=== PATIENT | female | born 1980 | race Caucasian/White ===

== ENCOUNTER 2016-10-25 11:14 | Emergency (ER) | payer BC ==
[2016-10-25 12:01] VITALS: BP 133/91
--- NOTE | 2016-10-25 13:09 | UC ---
Laceration HPI - HPI Summary HPI Summary: complaint of laceration on her right pointer finger was taking out the garbage this morning and cut her finger on glass bleed a lot and concerned about having laceration washed off can bend her finger without difficulty hasn't taken any medication for pain - History Of Current Complaint Chief Complaint: UCLaceration Stated Complaint: RIGHT INDEX FINGER LACERATION Time Seen by Provider: 10/25/16 13:02 Hx Obtained From: Patient Laceration Location: Finger - Allergies/Home Medications Allergies/Adverse Reactions: Allergies Allergy/AdvReac Type Severity Reaction Status Date / Time Bees Allergy Severe hives, Uncoded 02/05/16 19:34 severe rash, swells all over PMH/Surg Hx/FS Hx/Imm Hx Previously Healthy: Yes Endocrine History Of: Denies: Diabetes Cardiovascular History Of: Reports: Cardiac Disorders - rapid heart rate- medicine induced, Hypertension Denies: Pacemaker/ICD Respiratory History Of: Reports: Asthma, Bronchitis - 2011- NONE SINCE GI/ History Of: Reports: Kidney Stones - Check position- no current symptoms Comment Only: Renal Disease - New stone left kidney on US done in Dr Palacios's office Neurological History Of: Reports: Migraine - HX OF, NONE SINCE GLUTEN FREE DIET - Surgical History Surgical History: Yes Surgery Procedure, Year, and Place: 09/19/2013 [place] [facility] [place] [facility] [place] - Family History Known Family History: Positive: Cardiac Disease, Hypertension, Diabetes - Social History Alcohol Use: None Substance Use Type: None Smoking Status (MU): Former Smoker Amount Used/How Often: 1 PACK A WEEK Have You Smoked in the Last Year: No When Did the Patient Quit Smoking/Using Tobacco: January 2004 - Immunization History Most Recent Influenza Vaccination: has not had Most Recent Tetanus Shot: 2006 Review of Systems Constitutional: Negative Skin: Other - laceration Eyes: Negative ENT: Negative Respiratory: Negative Cardiovascular: Negative Gastrointestinal: Negative Genitourinary: Negative Motor: Negative Neurovascular: Negative Musculoskeletal: Negative Neurological: Negative Psychological: Negative All Other Systems Reviewed And Are Negative: Yes Physical Exam Triage Information Reviewed: Yes Appearance: Well-Nourished Vital Signs: Initial Vital Signs Temp 98.3 F 10/25/16 11:53 Pulse 88 10/25/16 11:53 Resp 16 10/25/16 11:53 BP 133/91 10/25/16 11:53 Pulse Ox 100 10/25/16 11:53 Vital Signs Reviewed: Yes Eyes: Positive: Conjunctiva Clear ENT: Positive: Pharynx normal. Negative: Nasal congestion Respiratory: Positive: Lungs clear, Normal breath sounds, No respiratory distress Cardiovascular: Positive: RRR, No Murmur, Pulses Normal Abdomen Description: Positive: Nontender, Soft Bowel Sounds: Positive: Present Musculoskeletal: Positive: No Edema Neurological: Positive: Alert Psychological Exam: Normal Skin: Positive: Other - left pointer finger with 4mm laceration between DIP/PIP Laceration Repair - Laceration Repair 1 Description: Linear Laceration Size After Repair: Length (cm) - 4mm, Width (mm) - 1mm, Depth (mm) - 2mm Modified For Repair: No Cleansing Completed Via Routine Prep: Yes Irrigation With Pressure Irrigation Device: Yes Closure Material: Skin Adhesive, SteriStrips Laceration Course/Dx - Differential Dx - Laceration/Wound Differental Diagnoses: Laceration Provider Diagnoses: simple laceration -left pointer finger Discharge - Discharge Plan Condition: Stable Disposition: HOME Patient Education Materials: Laceration (ED), Skin Adhesive Care (ED) Additional Instructions: keep you finger clean and dry wear the finger splint for 24 hours keep the steristrips on your finger until they fall off Take acetaminophen or ibuprofen for fever or pain Please review your discharge instructions. If your symptoms do not improve please call your primary care provider or return to urgent care
== END 2016-10-25 13:26 | disposition home or self-care (01) ==
LOC: UCCORT 11:14
DX: S61.210A Laceration without foreign body of right index finger without damage to nail, initial encounter (principal); W25.XXXA Contact with sharp glass, initial encounter; Y93.89 Activity, other specified; Y92.9 Unspecified place or not applicable; Z90.49 Acquired absence of other specified parts of digestive tract; Z87.891 Personal history of nicotine dependence
CPT/HCPCS: 12001; 99211; G0463

== ENCOUNTER 2017-06-03 06:27 | Day surgery (SDC) | payer BC ==
[~2017-06-03 06:27] MED LIST: Buffered Lidocaine 0.9% SYRIN* 5 ML/SYR SYRINGE INTRADERM ONE
[2017-06-03] MEDS ORDERED: ceFAZolin 2 GM PREMIX (*) 2 GM/50 ML BAG IVPB ONE (06:39)
[2017-06-03] MEDS ORDERED: Bupivacaine 0.25% SDV* 30 ML ONE (07:25)
[2017-06-03] MEDS ORDERED: Midazolam* 1 MG/ML 2 ML VIAL (2 MG) ONE (07:40)
[2017-06-03] MEDS ORDERED: fentaNYL* 50 MCG/ML 2 ML VIAL (100 MCG VIAL) ONE ×2 (07:40→08:23)
[2017-06-03] MEDS ORDERED: Famotidine IV* 10 MG/ML 2 ML (20 mg) ONE (07:47)
[2017-06-03] MEDS ORDERED: Ketorolac INJ* 30 MG/ML 1 ML VIAL ONE (08:34)
[2017-06-03] MEDS ORDERED: Propofol* 10 MG/ML 20 ML BTL IV PUSH ONE (08:34)
[2017-06-03] MEDS ORDERED: Dexamethasone IV* 4 MG/ML 1 ML (4 MG) ONE (08:34)
[2017-06-03] MEDS ORDERED: Ondansetron INJ* 2 MG/ML VIAL ONE (08:34)
[2017-06-03] MEDS ORDERED: Lidocaine 2% PF * 5 ML VIAL ONE (08:34)
[2017-06-03] MEDS ORDERED: Ondansetron INJ* 2 MG/ML VIAL IV PRN (08:51)
[2017-06-03] MEDS ORDERED: HYDROmorphone INJ* 1 MG/ML CARPUJECT SYRINGE IV PRN (08:51)
[2017-06-03] MEDS ORDERED: Acetaminophen TAB* 325 MG PO PRN (08:51)
[2017-06-03] MEDS ORDERED: Levalbuterol 0.63MG/3ML NEB* UNIT OF USE INH PRN (08:51)
[2017-06-03] MEDS ORDERED: fentaNYL* 50 MCG/ML 2 ML VIAL (100 MCG VIAL) IV PRN (08:51)
[2017-06-03] MEDS ORDERED: DiMENhydriNATE IV* 50 MG/ML VIAL IV PUSH PRN (08:51)
[2017-06-03] MEDS ORDERED: HYDROcodone/ACETAMIN 5-325 MG* 1 TAB PO PRN ×2 (08:51)
[2017-06-03] MEDS ORDERED: PROCHLORPERAZINE INJ 5 MG/ML 2 ML VIAL IV PRN (08:51)
[2017-06-03] MEDS ORDERED: DiMENhydriNATE IV* 50 MG/ML VIAL ONE (09:54)
[2017-06-03] MEDS ORDERED: HYDROcodone/ACETAMIN 5-325 MG* 1 TAB ONE (10:10)
[2017-06-03 10:19] VITALS: BP 110/73
--- NOTE | 2017-06-03 12:07 | OP ---
DATE OF OPERATION: 06/03/17 - [facility] DATE OF : 80 SURGEON: Cristobal Fontenot MD INDUSTRIAL ECOLOGIST: SILVIA Crain. An insurance sales assistant was needed for the entirety of the case to aid in holding the instruments and positioning the arm in retraction. ANESTHESIOLOGIST: Bertha Hall MD ANESTHESIA: General. PRE-OP DIAGNOSIS: Right dorsal intraarticular wrist nodule. POST-OP DIAGNOSES: 1. Right dorsal intraarticular wrist nodule. 2. Right dorsal wrist ganglion and synovitis. OPERATIVE PROCEDURE: 1. Right wrist diagnostic arthroscopy. 2. Right wrist arthroscopic partial synovectomy of the proximal and midcarpal rows. 3. Right dorsal wrist mass excision. INDICATIONS: Angeles has had persistent right dorsal radial wrist pain that is causing her pain when she flexes and extends the wrist. She has had intermittent swelling and bruising on the dorsum of the wrist. MRI showed an intraarticular nodule consistent with possible PVNS. I talked to her about risks and benefits. She wanted to have it excised as she really was not getting better despite multiple months of waiting and nonoperative treatment. I told her that I would take a look with the scope too prior to excising this and see if we can get some good pictures. ESTIMATED BLOOD LOSS: 5 mL. COMPLICATIONS: None. FINDINGS: It did look like there was a ganglion cyst coming off the scapholunate dorsal ligament. There was significant dorsal synovitis in the wrist. DESCRIPTION OF PROCEDURE: Angeles was seen in the preoperative holding area. The correct side, site, and procedure were identified. We came back to the operating room where the arm was prepped and draped in the usual fashion. A time-out was performed. I began by placing the arm in the Acumed traction tower. The arm was then exsanguinated and tourniquet inflated to 250 mmHg. I developed a 3/4 portal using an 11-blade and then a mosquito. The camera was placed. The wrist arthroscopy was begun, took pictures of the radial side of ligaments and the TFCC. I swung up dorsally behind the scapholunate ligament and there was lot of synovitis, but no tessa mass was appreciated. I then broadened the shaver and excised all of the very inflamed and dorsal synovitis. I had to establish a 6 R portal in standard fashion to introduce the shaver. I went up and established the radial and ulnar midcarpal portals again using the 11-blade and mosquito. There was no diastasis of either the scapholunate or lunotriquetral joints. It was a type 2 lunate. Again, there was abundant dorsal synovitis. I brought in a small shaver and excised this. I then removed all the arthroscopic equipments, passed it off, and we begun the open portion of the procedure. I begun by making a longitudinal incision over the dorsum of the wrist in line incorporating the 3/4 and radial midcarpal portals, brought that more centrally , proximally, and distally. Dissection was carried down longitudinally. Full- thickness flaps were raised right off the paratenon and extensor retinaculum. The nodule could be palpated right between the second and fourth dorsal compartment tendons, just distal to the third dorsal compartment tendon. I went ahead and lifted off the capsule in this area. There was ganglion fluid that came out right off the dorsal scapholunate ligament. This was all excised , sent off as a specimen. I cauterized the area. Once everything was cleaned up and excised, I went ahead and irrigated out the wound. The skin and subcutaneous tissue was reapproximated with 3-0 Vicryl suture. The skin was closed with 4-0 nylon suture. All the operative area was infiltrated with 0.25% plain Marcaine. The wounds were dressed with Xeroform, 4x4's, sterile Webril, and volar wrist splint was placed at the wrist in neutral position. She was taken to recovery room in stable condition. [id number]/[facility] #: [id number] JAYRO
== END 2017-06-03 10:30 | disposition home or self-care (01) ==
LOC: OREAST 06:27
PROVIDERS: ATTEND Orthopaedic Surgery Hand Surgery
DX: M67.431 Ganglion, right wrist (principal); M65.831 Other synovitis and tenosynovitis, right forearm; Z88.8 Allergy status to other drugs, medicaments and biological substances; Z87.891 Personal history of nicotine dependence; J45.909 Unspecified asthma, uncomplicated
CPT/HCPCS: 81025; 88304; J0690; J1100; J1240; J1885; J2250; J2405; J2704; J3010

== ENCOUNTER 2019-02-14 13:02 | Emergency (ER) | payer BC ==
[2019-02-14 13:36] VITALS: BP 116/76
--- NOTE | 2019-02-14 13:41 | UC ---
UC General HPI - HPI Summary HPI Summary: pt stubbed her L foot last pm while attempting to break her fall. she is c/o pain to 1-4th toes and adjacent foot. - History of Current Complaint Chief Complaint: UCLowerExtremity Stated Complaint: LEFT FOOT INJURY Time Seen by Provider: 02/14/19 13:28 Hx Obtained From: Patient Hx Last Menstrual Period: 01/29/19 Onset/Duration: Sudden Onset Timing: Constant Pain Intensity: 8 Aggravating: movemnt Associated Signs & Symptoms: Positive: Other - swelling/brusing L foot - Allergy/Home Medications Allergies/Adverse Reactions: Allergies Allergy/AdvReac Type Severity Reaction Status Date / Time montelukast [From Singulair] AdvReac Tachycardia Verified 02/14/19 13:28 Bees Allergy Severe hives, Uncoded 02/14/19 13:28 severe rash, swells all over Home Medications: Home Medications Dicyclomine CAP* [Bentyl CAP*] 10 mg PO AC 02/14/19 [History Confirmed 02/14/19] Linaclotide [Linzess] 72 mcg PO DAILY 02/14/19 [History Confirmed 02/14/19] PMH/Surg Hx/FS Hx/Imm Hx - Additional Past Medical History Additional PMH: IBS - Surgical History Surgical History: Yes Surgery Procedure, Year, and Place: 09/19[place] [facility] [place] [facility] [place] hand ganglion cysts - Family History Known Family History: Positive: Cardiac Disease, Hypertension, Diabetes - Social History Alcohol Use: None Substance Use Type: None Smoking Status (MU): Former Smoker Amount Used/How Often: 1 PACK A WEEK, smoked for 3 years Have You Smoked in the Last Year: No When Did the Patient Quit Smoking/Using Tobacco: January 2004 - Immunization History Most Recent Influenza Vaccination: has not had Most Recent Tetanus Shot: 2006 Review of Systems All Other Systems Reviewed And Are Negative: No Constitutional: Negative: Fever Musculoskeletal: Positive: Edema - L foot Neurological: Negative: Weakness, Paresthesia, Numbness Physical Exam Triage Information Reviewed: Yes Appearance: Well-Appearing Vital Signs: Initial Vital Signs Temp 98.4 F 02/14/19 13:30 Pulse 87 02/14/19 13:30 Resp 16 02/14/19 13:30 BP 116/76 02/14/19 13:30 Pulse Ox 100 02/14/19 13:30 Vital Signs Reviewed: Yes Respiratory: Positive: No respiratory distress Cardiovascular: Positive: RRR Musculoskeletal: Positive: Other: - LLE: ankle is non tender. midfoot and 1-4th toes with mild swelling and tenderness. foot has gross s/v/m function. Neurological: Positive: Alert Psychological: Positive: Age Appropriate Behavior Skin Exam: Normal Diagnostics - Radiology No standard instances Radiology Interpretation Completed By: Radiologist - IMPRESSION: Transverse fracture distal phalanx second digit. Course/Dx - Diagnoses Provider Diagnosis: Contusion of left foot, Toe fracture, left Discharge - Sign-Out/Discharge Documenting (check all that apply): Patient Departure All imaging exams completed and their final reports reviewed: Yes - Discharge Plan Condition: Stable Disposition: HOME Patient Education Materials: Foot Contusion (ED), Toe Fracture (ED) Referrals: Leonel Rivas MD [Medical Doctor] - As Soon As Possible - Billing Disposition and Condition Condition: STABLE Disposition: Home
== END 2019-02-14 14:38 | disposition home or self-care (01) ==
LOC: UCCORT 13:02
DX: S92.532A Displaced fracture of distal phalanx of left lesser toe(s), initial encounter for closed fracture (principal); S90.32XA Contusion of left foot, initial encounter; W22.8XXA Striking against or struck by other objects, initial encounter; Y92.9 Unspecified place or not applicable; K58.9 Irritable bowel syndrome, unspecified; Z87.891 Personal history of nicotine dependence
CPT/HCPCS: 99212; G0463